=== PATIENT | male | born 1980 | race Two or more races ===

== ENCOUNTER 2020-03-09 00:23 | Inpatient (IN) | payer OTHER ==
[~2020-03-09] VITALS: Ht 172.7 cm; Wt 67.6 kg
[2020-03-09 04:00] VITALS: BP 104/64
[2020-03-09] MEDS ORDERED: HYDROcodone/Acetamin 5/325 tab ORAL PRN (05:45)
[2020-03-09 08:00] VITALS: BP 105/68
[2020-03-09] MEDS: Bacitracin Oint 15gm Tube TOPIC SCH ×2 (08:26→19:10)
[2020-03-09] MEDS: Ampicillin/Sulbactam Sod 3 GM in NS 110 ML IVPB SCH ×3 (08:26→20:20)
[2020-03-09 11:48] LABS: BASOPHILS % (AUTO) 0.7 % (0.0-2.0); EOSINOPHILS % (AUTO) 0.9 % (0.0-3.0); HEMATOCRIT 34.9 % (42.0-52.0); HEMOGLOBIN 12.4 G/DL (14.2-18.0); LYMPHOCYTES % (AUTO) 22.9 % (20.0-45.0); MEAN CORPUSCULAR VOLUME 87 FL (80-99); NEUTROPHILS % (AUTO) 62.5 % (45.0-75.0); PLATELET COUNT 182 K/UL (150-450); RED CELL DISTRIBUTION WIDTH 10.2 % (11.6-14.8); WHITE BLOOD COUNT 5.5 K/UL (4.8-10.8)
[2020-03-09 11:52] VITALS: BP 107/62
[2020-03-09 12:08] LABS: ALANINE AMINOTRANSFERASE 41 U/L (12-78); ALBUMIN 3.7 G/DL (3.4-5.0); ALBUMIN/GLOBULIN RATIO 1.2 (1.0-2.7); ALKALINE PHOSPHATASE 63 U/L (46-116); ANION GAP 8 mmol/L (5-15); ASPARTATE AMINO TRANSFERASE 19 U/L (15-37); BILIRUBIN,TOTAL 1.3 MG/DL (0.2-1.0); BLOOD UREA NITROGEN 16 mg/dL (7-18); CALCIUM 8.9 MG/DL (8.5-10.1); CARBON DIOXIDE 29 MMOL/L (21-32); CHLORIDE 105 MMOL/L (98-107); PHOSPHORUS 3.7 MG/DL (2.5-4.9); POTASSIUM 3.7 MMOL/L (3.5-5.1); SODIUM 142 MMOL/L (136-145)
[2020-03-09 12:09] LABS: BILIRUBIN,DIRECT 0.2 MG/DL (0.0-0.3)
--- NOTE | 2020-03-09 14:27 | History & Physical ---
History and Physical History & Physicial Dictated for Int Mwed-Dr Miller no. [id number]. Eleazar Forte MD March 09, 2020 14:27
[2020-03-09] MEDS ORDERED: Tubing IV Secondary IV ONE (14:56)
[2020-03-09] MEDS ORDERED: NS 500ML ONE (14:56)
[2020-03-09 16:00] VITALS: BP 113/66
[2020-03-09 23:26] VITALS: BP 93/67
--- NOTE | 2020-03-09 23:29 | History and Physical Report ---
DATE OF ADMISSION: 03/09/2020 CHIEF COMPLAINT: The patient is a 39-year-old male presents with complaint of left leg redness, began on 03/06/2020. HISTORY OF PRESENT ILLNESS: The patient suffered a cat bite of the left calf. Cat belongs to his roommate. The patient states he began experienced pain and swelling of the left calf on 03/07/2020. The patient presented to [facility] emergency room. The patient was given 1 dose of Unasyn IV and oral Augmentin. The patient was discharged home. The patient states his left calf continues to swell. The redness spread beyond the ink alana, which was drawn in the emergency room the day previously. The patient states he had fever up to 100.0 degrees Fahrenheit. The patient went to urgent care. The patient was directed to [facility] emergency room again. The patient is transferred to [facility] for insurance purposes. The patient is admitted for cellulitis of the left lower extremity. REVIEW OF SYSTEMS: CONSTITUTIONAL: The patient denies weight loss or weight gain. The patient complains of low-grade fever as above. HEENT: The patient denies ear or throat pain. The patient denies headache. CARDIOVASCULAR: The patient denies palpitations or chest pain. CHEST: The patient denies wheezes or shortness of breath. ABDOMEN: The patient denies nausea, vomiting, diarrhea, or constipation. GENITOURINARY: The patient denies dysuria or increased frequency of urination. NEUROMUSCULAR: The patient complains of redness of the left calf as above. The patient denies weakness or seizures. PAST MEDICAL HISTORY: Significant for prediabetes. PAST SURGICAL HISTORY: Significant for right knee meniscus tear. CURRENT MEDICATIONS: The patient denies. ALLERGIES: No known drug allergies. 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 The patient denies tobacco or alcohol use. PHYSICAL EXAMINATION: VITAL SIGNS: Temperature 98.6, respirations 15, pulse 90, and blood pressure 126/78. GENERAL: The patient is a well-developed and well-nourished male, in no apparent distress. HEENT: Eyes, pupils are equal and responsive to light and accommodation. Extraocular movements are intact. NECK: Supple without lymphadenopathy. CHEST: Lungs are clear to auscultation bilaterally without wheezes or rales. CARDIOVASCULAR: Regular rate. S1 and S2 are normal without murmurs, rubs, or gallops. ABDOMEN: Soft, nontender, and nondistended. Positive bowel sounds. No evidence of hepatosplenomegaly. Currently, no rebound or guarding noted. EXTREMITIES: Presence of erythema on the left medial calf. There is no purulent discharge from the cat bite. Otherwise, without clubbing, cyanosis, or edema. RECTAL/GENITAL: Not performed. NEUROLOGIC: Cranial nerves II through XII are grossly intact without focal deficits. Motor strength is 5/5 bilaterally. Deep tendon reflexes are 2+ plantar. LABORATORY STUDIES: WBC 8.5, hemoglobin 13.3, hematocrit 38.2, and platelets ___. BUN 14, creatinine 1.14, glucose 95, sodium 142, potassium 3.7, chloride 105, and CO2 29. ASSESSMENT: This is a 39-year-old white male: 1. Cellulitis of the left lower extremity. 2. Cat bite. 3. Prediabetes. TREATMENT: 1. Cellulitis/cat bite of the left lower extremity. The patient has been started empirically on intravenous Unasyn. The patient will be transitioned to Augmentin when erythema resolved. 2. Prediabetes, current blood sugar is 101. A regular insulin sliding scale will be instituted if the patient's blood sugars are greater than 130. Eleazar Forte M.D. DR: Nimisha JOB#: [id number] CC:
[2020-03-10] MEDS: Ampicillin/Sulbactam Sod 3 GM in NS 110 ML IVPB SCH ×4 (01:57→19:51)
[2020-03-10 04:00] VITALS: BP 101/64
[2020-03-10 07:05] LABS: BASOPHILS % (AUTO) 1.2 % (0.0-2.0); EOSINOPHILS % (AUTO) 2.3 % (0.0-3.0); HEMATOCRIT 35.4 % (42.0-52.0); HEMOGLOBIN 12.9 G/DL (14.2-18.0); LYMPHOCYTES % (AUTO) 31.5 % (20.0-45.0); MEAN CORPUSCULAR VOLUME 87 FL (80-99); MONOCYTES % (AUTO) 17.9 % (1.0-10.0); NEUTROPHILS % (AUTO) 47.1 % (45.0-75.0); PLATELET COUNT 197 K/UL (150-450); RED BLOOD COUNT 4.07 M/UL (4.70-6.10); RED CELL DISTRIBUTION WIDTH 10.1 % (11.6-14.8); WHITE BLOOD COUNT 4.6 K/UL (4.8-10.8)
[2020-03-10 07:15] LABS: ANION GAP 8 mmol/L (5-15); BLOOD UREA NITROGEN 18 mg/dL (7-18); CALCIUM 8.7 MG/DL (8.5-10.1); CARBON DIOXIDE 30 MMOL/L (21-32); CHLORIDE 108 MMOL/L (98-107); CREATININE 1.1 MG/DL (0.55-1.30); POTASSIUM 4.2 MMOL/L (3.5-5.1); SODIUM 145 MMOL/L (136-145)
[2020-03-10 08:00] VITALS: BP 136/79
[2020-03-10] MEDS: Bacitracin Oint 15gm Tube TOPIC SCH ×2 (08:59→17:26)
--- NOTE | 2020-03-10 10:40 | Diagnostic Imaging Report ---
Indication: Left leg edema and pain, status post cat bite left medial calf Technique: Grayscale and duplex images of the left lower extremity veins Comparison: None Findings: On the left, grayscale and duplex images demonstrate no evidence of intraluminal thrombus. Normal phasic Doppler waveforms, demonstrating normal augmentation response and no evidence of valvular insufficiency. Greater saphenous vein(s) and tibial veins are patent. Normal compressibility. Impression: Negative for evidence of lower extremity deep venous thrombosis on the left
[2020-03-10 12:00] VITALS: BP 105/68
--- NOTE | 2020-03-10 13:03 | Internal Med Progress Note ---
Subjective Date of Service: March 10, 2020 Physician Name Eleazar Forte Attending Physician Curt Miller MD Current Medications Medications (Trade) Dose Ordered Sig/Dillon Route PRN Reason Start Time Stop Time Status Last Admin Dose Admin Acetaminophen (Tylenol) 650 mg Q6H PRN ORAL Mild pain 1-3 & fever 03/09/20 05:45 04/08/20 05:44 Acetaminophen/ Hydrocodone Bitart ([place] 5/325) 1 tab Q6H PRN ORAL Severe Pain (Pain Scale 7-10) 03/09/20 05:45 03/16/20 05:44 Ampicillin Sodium/ Sulbactam Sodium 3 gm/Sodium Chloride 110 ml @ 220 mls/hr Q6H IVPB 03/09/20 08:00 03/16/20 07:59 03/10/20 08:59 Bacitracin (Bacitracin 15gm tube) 1 applic BID TOPIC 03/09/20 09:00 06/07/20 08:59 03/10/20 08:59 Ondansetron HCl (Zofran) 4 mg Q4H PRN IVP Nausea & Vomiting 03/09/20 05:45 04/08/20 05:44 Allergies: Coded Allergies: No Known Allergies (Unverified , 03/09/20) ROS Limited/Unobtainable: No Constitutional: Reports: no symptoms HEENT: Reports: no symptoms Cardiovascular: Reports: no symptoms Respiratory: Reports: no symptoms Gastrointestinal/Abdominal: Reports: no symptoms Genitourinary: Reports: no symptoms Neurologic/Psychiatric: Reports: no symptoms Subjective 39 YO M with history of cat bite to left calf admitted with cellulitis left leg. Cover for Int Med-Dr Miller Objective Last Vital Signs Date Time Temp Pulse Resp B/P (MAP) Pulse Ox O2 Delivery O2 Flow Rate FiO2 03/10/20 09:00 Room Air 03/10/20 08:00 98.1 74 18 136/79 (98) 99 Laboratory Tests Test 03/10/20 05:10 White Blood Count 4.6 K/UL (4.8-10.8) L Red Blood Count 4.07 M/UL (4.70-6.10) L Hemoglobin 12.9 G/DL (14.2-18.0) L Hematocrit 35.4 % (42.0-52.0) L Mean Corpuscular Volume 87 FL (80-99) Mean Corpuscular Hemoglobin 31.7 PG (27.0-31.0) H Mean Corpuscular Hemoglobin Concent 36.5 G/DL (32.0-36.0) H Red Cell Distribution Width 10.1 % (11.6-14.8) L Platelet Count 197 K/UL (150-450) Mean Platelet Volume 5.7 FL (6.5-10.1) L Neutrophils (%) (Auto) 47.1 % (45.0-75.0) Lymphocytes (%) (Auto) 31.5 % (20.0-45.0) Monocytes (%) (Auto) 17.9 % (1.0-10.0) H Eosinophils (%) (Auto) 2.3 % (0.0-3.0) Basophils (%) (Auto) 1.2 % (0.0-2.0) Sodium Level 145 MMOL/L (136-145) Potassium Level 4.2 MMOL/L (3.5-5.1) Chloride Level 108 MMOL/L (98-107) H Carbon Dioxide Level 30 MMOL/L (21-32) Anion Gap 8 mmol/L (5-15) Blood Urea Nitrogen 18 mg/dL (7-18) Creatinine 1.1 MG/DL (0.55-1.30) Estimat Glomerular Filtration Rate > 60 mL/min (>60) Glucose Level 106 MG/DL (74-106) Calcium Level 8.7 MG/DL (8.5-10.1) Intake and Output 03/09/20 03/10/20 19:00 07:00 Intake Total 900 ml 590 ml Balance 900 ml 590 ml Intake Oral 900 ml 480 ml IV Total 110 ml # Voids 3 5 # Bowel Movements 3 Objective PHYSICAL EXAMINATION: GENERAL: The patient is a well-developed and well-nourished male, in no apparent distress. HEENT: Eyes, pupils are equal and responsive to light and accommodation. Extraocular movements are intact. NECK: Supple without lymphadenopathy. CHEST: Lungs are clear to auscultation bilaterally without wheezes or rales. CARDIOVASCULAR: Regular rate. S1 and S2 are normal without murmurs, rubs, or gallops. ABDOMEN: Soft, nontender, and nondistended. Positive bowel sounds. No evidence of hepatosplenomegaly. Currently, no rebound or guarding noted. EXTREMITIES: Presence of erythema on the left medial calf. There is no purulent discharge from the cat bite. Otherwise, without clubbing, cyanosis, or edema. RECTAL/GENITAL: Not performed. NEUROLOGIC: Cranial nerves II through XII are grossly intact without focal deficits. Motor strength is 5/5 bilaterally. Deep tendon reflexes are 2+ plantar. Assessment/Plan Assessment/Plan ASSESSMENT: This is a 39-year-old white male: 1. Cellulitis of the left lower extremity. 2. Cat bite. 3. Prediabetes. TREATMENT: 1. Cellulitis/cat bite of the left lower extremity. The patient has been started empirically on intravenous Unasyn. Venous duplex doppler=neg for DVT. Blood cultures neg. The patient will be transitioned to Augmentin when erythema resolved. 2. Prediabetes, current blood sugar is 101. A regular insulin sliding scale will be instituted if the patient's blood sugars are greater than 130. Eleazar Forte MD March 10, 2020 13:03
[2020-03-10 16:00] VITALS: BP 106/68
[2020-03-10 20:00] VITALS: BP 117/70
[2020-03-11 00:01] VITALS: BP 96/56
[2020-03-11] MEDS: Ampicillin/Sulbactam Sod 3 GM in NS 110 ML IVPB SCH ×3 (01:43→15:21)
[2020-03-11 05:41] LABS: BASOPHILS % (AUTO) 1.3 % (0.0-2.0); EOSINOPHILS % (AUTO) 2.7 % (0.0-3.0); HEMATOCRIT 36.2 % (42.0-52.0); LYMPHOCYTES % (AUTO) 39.2 % (20.0-45.0); MEAN CORPUSCULAR VOLUME 86 FL (80-99); MONOCYTES % (AUTO) 13.3 % (1.0-10.0); NEUTROPHILS % (AUTO) 43.5 % (45.0-75.0); PLATELET COUNT 200 K/UL (150-450); RED BLOOD COUNT 4.19 M/UL (4.70-6.10); RED CELL DISTRIBUTION WIDTH 9.8 % (11.6-14.8); WHITE BLOOD COUNT 4.8 K/UL (4.8-10.8)
[2020-03-11 05:56] LABS: ANION GAP 5 mmol/L (5-15); BLOOD UREA NITROGEN 20 mg/dL (7-18); CALCIUM 8.7 MG/DL (8.5-10.1); CARBON DIOXIDE 30 MMOL/L (21-32); CHLORIDE 107 MMOL/L (98-107); POTASSIUM 4.2 MMOL/L (3.5-5.1); SODIUM 142 MMOL/L (136-145)
[2020-03-11 08:00] VITALS: BP 118/75
[2020-03-11] MEDS: Bacitracin Oint 15gm Tube TOPIC SCH ×2 (08:41→18:23)
[2020-03-11 11:50] VITALS: BP 106/70
--- NOTE | 2020-03-11 13:35 | Consultation ---
History of Present Illness General Date patient seen: March 11, 2020 Reason for Consultation: inpatient management Present Illness HPI 39 year old with hx of prediabetes presented to ER of [facility] with redness and swelling to his left calf after a cat bite. Pt received one dose of IV Unasy and was given Augmentin and discharged. The following day the redness and swelling came back and he went to ER again. He is transferred to [facility] for further treatment. Allergies: Coded Allergies: No Known Allergies (Unverified , 03/09/20) Patient History Healthcare decision maker Resuscitation status Advanced Directive on File Past Medical/Surgical History Past Medical/Surgical History: (1) History of prediabetes Review of Systems Constitutional: Reports: fever All Other Systems: negative except mentioned in HPI Physical Exam General Appearance: WD/WN Lines, tubes and drains: peripheral HEENT: normocephalic, anicteric Neck: non-tender, supple Respiratory/Chest: chest wall non-tender, normal breath sounds Cardiovascular/Chest: normal peripheral pulses, normal rate Abdomen: non tender, soft Genitourinary/Rectal: normal genital exam, normal rectal exam Extremities: normal range of motion Skin Exam: other - redness at left posterior calf area Last 24 Hour Vital Signs Date Time Temp Pulse Resp B/P (MAP) Pulse Ox O2 Delivery O2 Flow Rate FiO2 03/11/20 11:50 97.7 63 19 106/70 (82) 99 03/11/20 09:00 Room Air 03/11/20 08:00 97.6 72 20 118/75 (89) 96 03/11/20 00:01 97.5 64 18 96/56 (69) 100 03/10/20 21:00 Room Air 03/10/20 20:00 97.8 56 18 117/70 (86) 100 03/10/20 16:00 98.0 63 18 106/68 (81) 96 Intake and Output 03/10/20 03/11/20 19:00 07:00 Intake Total 600 ml 600 ml Balance 600 ml 600 ml Intake Oral 600 ml 600 ml # Voids 3 4 Laboratory Tests Test 03/11/20 04:40 White Blood Count 4.8 K/UL (4.8-10.8) Red Blood Count 4.19 M/UL (4.70-6.10) L Hemoglobin 13.0 G/DL (14.2-18.0) L Hematocrit 36.2 % (42.0-52.0) L Mean Corpuscular Volume 86 FL (80-99) Mean Corpuscular Hemoglobin 30.9 PG (27.0-31.0) Mean Corpuscular Hemoglobin Concent 35.8 G/DL (32.0-36.0) Red Cell Distribution Width 9.8 % (11.6-14.8) L Platelet Count 200 K/UL (150-450) Mean Platelet Volume 5.5 FL (6.5-10.1) L Neutrophils (%) (Auto) 43.5 % (45.0-75.0) L Lymphocytes (%) (Auto) 39.2 % (20.0-45.0) Monocytes (%) (Auto) 13.3 % (1.0-10.0) H Eosinophils (%) (Auto) 2.7 % (0.0-3.0) Basophils (%) (Auto) 1.3 % (0.0-2.0) Sodium Level 142 MMOL/L (136-145) Potassium Level 4.2 MMOL/L (3.5-5.1) Chloride Level 107 MMOL/L (98-107) Carbon Dioxide Level 30 MMOL/L (21-32) Anion Gap 5 mmol/L (5-15) Blood Urea Nitrogen 20 mg/dL (7-18) H Creatinine 1.0 MG/DL (0.55-1.30) Estimat Glomerular Filtration Rate > 60 mL/min (>60) Glucose Level 101 MG/DL (74-106) Calcium Level 8.7 MG/DL (8.5-10.1) Height (Feet): 5 Height (Inches): 8.00 Weight (Pounds): 149 Medications Current Medications Medications (Trade) Dose Ordered Sig/Dillon Route PRN Reason Start Time Stop Time Status Last Admin Dose Admin Acetaminophen (Tylenol) 650 mg Q6H PRN ORAL Mild pain 1-3 & fever 03/09/20 05:45 04/08/20 05:44 Acetaminophen/ Hydrocodone Bitart ([place] 5/325) 1 tab Q6H PRN ORAL Severe Pain (Pain Scale 7-10) 03/09/20 05:45 03/16/20 05:44 Ampicillin Sodium/ Sulbactam Sodium 3 gm/Sodium Chloride 110 ml @ 220 mls/hr Q6H IVPB 03/09/20 08:00 03/16/20 07:59 03/11/20 08:41 Bacitracin (Bacitracin 15gm tube) 1 applic BID TOPIC 03/09/20 09:00 06/07/20 08:59 03/11/20 08:41 Ondansetron HCl (Zofran) 4 mg Q4H PRN IVP Nausea & Vomiting 03/09/20 05:45 04/08/20 05:44 Assessment/Plan Problem List: (1) Left leg cellulitis ICD Codes: L03.116 - Cellulitis of left lower limb SNOMED: 996347025 (2) Cat bite ICD Codes: W55.01XA - Bitten by cat, initial encounter SNOMED: 811703214, 321694165 (3) History of prediabetes ICD Codes: Z87.898 - Personal history of other specified conditions SNOMED: 4496713, 867007438 Assessment/Plan: improving on IV abx symptomatic treatment check cultures ID called about switching to oral medication. Wendy Navarro MD March 11, 2020 13:35
--- NOTE | 2020-03-11 14:08 | Consultation ---
History of Present Illness General Date patient seen: March 11, 2020 Reason for Consultation: inpatient management Present Illness HPI 39 y/o M with hx of pre-diabetes, R knee meniscus tear repair presented to ED on 03/09 with worsening L calf redness and swelling after a cat bite. He noticed swelling and pain on 03/07/20. He was seen on [place] ED on 03/08 and was given one dose of IV Unasyn and discharged on augmentin. Patient continue to have redness and swelling and presented to ED [facility]. He endorsed having fever up to 100. 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 The patient denies tobacco or alcohol use. Fhx: non contributory Review of Systems All Other Systems: negative except mentioned in HPI Physical Exam Physical Exam Narrative GENERAL: The patient is a well-developed and well-nourished male, in no apparent distress. HEENT: Eyes, pupils are equal and responsive to light and accommodation. Extraocular movements are intact. NECK: Supple without lymphadenopathy. CHEST: Lungs are clear to auscultation bilaterally without wheezes or rales. CARDIOVASCULAR: Regular rate. S1 and S2 are normal without murmurs, rubs, or gallops. ABDOMEN: Soft, nontender, and nondistended. Positive bowel sounds. No evidence of hepatosplenomegaly. Currently, no rebound or guarding noted. EXTREMITIES: Presence of erythema on the left medial calf. There is no purulent discharge from the cat bite. Otherwise, without clubbing, cyanosis, or edema. Last 24 Hour Vital Signs Date Time Temp Pulse Resp B/P (MAP) Pulse Ox O2 Delivery O2 Flow Rate FiO2 03/11/20 11:50 97.7 63 19 106/70 (82) 99 03/11/20 09:00 Room Air 03/11/20 08:00 97.6 72 20 118/75 (89) 96 03/11/20 00:01 97.5 64 18 96/56 (69) 100 03/10/20 21:00 Room Air 03/10/20 20:00 97.8 56 18 117/70 (86) 100 03/10/20 16:00 98.0 63 18 106/68 (81) 96 Intake and Output 03/10/20 03/11/20 19:00 07:00 Intake Total 600 ml 600 ml Balance 600 ml 600 ml Intake Oral 600 ml 600 ml # Voids 3 4 Laboratory Tests Test 03/11/20 04:40 White Blood Count 4.8 K/UL (4.8-10.8) Red Blood Count 4.19 M/UL (4.70-6.10) L Hemoglobin 13.0 G/DL (14.2-18.0) L Hematocrit 36.2 % (42.0-52.0) L Mean Corpuscular Volume 86 FL (80-99) Mean Corpuscular Hemoglobin 30.9 PG (27.0-31.0) Mean Corpuscular Hemoglobin Concent 35.8 G/DL (32.0-36.0) Red Cell Distribution Width 9.8 % (11.6-14.8) L Platelet Count 200 K/UL (150-450) Mean Platelet Volume 5.5 FL (6.5-10.1) L Neutrophils (%) (Auto) 43.5 % (45.0-75.0) L Lymphocytes (%) (Auto) 39.2 % (20.0-45.0) Monocytes (%) (Auto) 13.3 % (1.0-10.0) H Eosinophils (%) (Auto) 2.7 % (0.0-3.0) Basophils (%) (Auto) 1.3 % (0.0-2.0) Sodium Level 142 MMOL/L (136-145) Potassium Level 4.2 MMOL/L (3.5-5.1) Chloride Level 107 MMOL/L (98-107) Carbon Dioxide Level 30 MMOL/L (21-32) Anion Gap 5 mmol/L (5-15) Blood Urea Nitrogen 20 mg/dL (7-18) H Creatinine 1.0 MG/DL (0.55-1.30) Estimat Glomerular Filtration Rate > 60 mL/min (>60) Glucose Level 101 MG/DL (74-106) Calcium Level 8.7 MG/DL (8.5-10.1) Height (Feet): 5 Height (Inches): 8.00 Weight (Pounds): 149 Medications Current Medications Medications (Trade) Dose Ordered Sig/Dillon Route PRN Reason Start Time Stop Time Status Last Admin Dose Admin Acetaminophen (Tylenol) 650 mg Q6H PRN ORAL Mild pain 1-3 & fever 03/09/20 05:45 04/08/20 05:44 Acetaminophen/ Hydrocodone Bitart ([place] 5/325) 1 tab Q6H PRN ORAL Severe Pain (Pain Scale 7-10) 03/09/20 05:45 03/16/20 05:44 Ampicillin Sodium/ Sulbactam Sodium 3 gm/Sodium Chloride 110 ml @ 220 mls/hr Q6H IVPB 03/09/20 08:00 03/16/20 07:59 03/11/20 08:41 Bacitracin (Bacitracin 15gm tube) 1 applic BID TOPIC 03/09/20 09:00 06/07/20 08:59 03/11/20 08:41 Ondansetron HCl (Zofran) 4 mg Q4H PRN IVP Nausea & Vomiting 03/09/20 05:45 04/08/20 05:44 Assessment/Plan Assessment/Plan: Abx: Unasyn 03/09- Assessment: L calf cellulitis after eder bite; resolving -BCx NTD -V. 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 Will continue to follow along with you. Discussed with RN, Alla Galvan M.D. March 11, 2020 14:08
--- NOTE | 2020-03-11 15:07 | Internal Med Progress Note ---
Subjective Date of Service: March 11, 2020 Physician Name Eleazar Forte Attending Physician Curt Miller MD Current Medications Medications (Trade) Dose Ordered Sig/Dillon Route PRN Reason Start Time Stop Time Status Last Admin Dose Admin Acetaminophen (Tylenol) 650 mg Q6H PRN ORAL Mild pain 1-3 & fever 03/09/20 05:45 04/08/20 05:44 Acetaminophen/ Hydrocodone Bitart ([place] 5/325) 1 tab Q6H PRN ORAL Severe Pain (Pain Scale 7-10) 03/09/20 05:45 03/16/20 05:44 Ampicillin Sodium/ Sulbactam Sodium 3 gm/Sodium Chloride 110 ml @ 220 mls/hr Q6H IVPB 03/09/20 08:00 03/16/20 07:59 03/11/20 08:41 Bacitracin (Bacitracin 15gm tube) 1 applic BID TOPIC 03/09/20 09:00 06/07/20 08:59 03/11/20 08:41 Ondansetron HCl (Zofran) 4 mg Q4H PRN IVP Nausea & Vomiting 03/09/20 05:45 04/08/20 05:44 Allergies: Coded Allergies: No Known Allergies (Unverified , 03/09/20) ROS Limited/Unobtainable: No Constitutional: Reports: no symptoms HEENT: Reports: no symptoms Cardiovascular: Reports: no symptoms Respiratory: Reports: no symptoms Gastrointestinal/Abdominal: Reports: no symptoms Genitourinary: Reports: no symptoms Neurologic/Psychiatric: Reports: no symptoms Subjective 39 YO M with history of cat bite to left calf admitted with cellulitis left leg. Cover for Int Med-Dr Miller Objective Last Vital Signs Date Time Temp Pulse Resp B/P (MAP) Pulse Ox O2 Delivery O2 Flow Rate FiO2 03/11/20 11:50 97.7 63 19 106/70 (82) 99 03/11/20 09:00 Room Air Laboratory Tests Test 03/11/20 04:40 White Blood Count 4.8 K/UL (4.8-10.8) Red Blood Count 4.19 M/UL (4.70-6.10) L Hemoglobin 13.0 G/DL (14.2-18.0) L Hematocrit 36.2 % (42.0-52.0) L Mean Corpuscular Volume 86 FL (80-99) Mean Corpuscular Hemoglobin 30.9 PG (27.0-31.0) Mean Corpuscular Hemoglobin Concent 35.8 G/DL (32.0-36.0) Red Cell Distribution Width 9.8 % (11.6-14.8) L Platelet Count 200 K/UL (150-450) Mean Platelet Volume 5.5 FL (6.5-10.1) L Neutrophils (%) (Auto) 43.5 % (45.0-75.0) L Lymphocytes (%) (Auto) 39.2 % (20.0-45.0) Monocytes (%) (Auto) 13.3 % (1.0-10.0) H Eosinophils (%) (Auto) 2.7 % (0.0-3.0) Basophils (%) (Auto) 1.3 % (0.0-2.0) Sodium Level 142 MMOL/L (136-145) Potassium Level 4.2 MMOL/L (3.5-5.1) Chloride Level 107 MMOL/L (98-107) Carbon Dioxide Level 30 MMOL/L (21-32) Anion Gap 5 mmol/L (5-15) Blood Urea Nitrogen 20 mg/dL (7-18) H Creatinine 1.0 MG/DL (0.55-1.30) Estimat Glomerular Filtration Rate > 60 mL/min (>60) Glucose Level 101 MG/DL (74-106) Calcium Level 8.7 MG/DL (8.5-10.1) Microbiology Date/Time Source Procedure Growth Status 03/09/20 06:40 Blood Blood Culture - Preliminary NO GROWTH AFTER 24 HOURS Resulted 03/09/20 06:35 Blood Blood Culture - Preliminary NO GROWTH AFTER 24 HOURS Resulted Intake and Output 03/10/20 03/11/20 19:00 07:00 Intake Total 600 ml 600 ml Balance 600 ml 600 ml Intake Oral 600 ml 600 ml # Voids 3 4 Objective PHYSICAL EXAMINATION: GENERAL: The patient is a well-developed and well-nourished male, in no apparent distress. HEENT: Eyes, pupils are equal and responsive to light and accommodation. Extraocular movements are intact. NECK: Supple without lymphadenopathy. CHEST: Lungs are clear to auscultation bilaterally without wheezes or rales. CARDIOVASCULAR: Regular rate. S1 and S2 are normal without murmurs, rubs, or gallops. ABDOMEN: Soft, nontender, and nondistended. Positive bowel sounds. No evidence of hepatosplenomegaly. Currently, no rebound or guarding noted. EXTREMITIES: Presence of erythema on the left medial calf. There is no purulent discharge from the cat bite. Otherwise, without clubbing, cyanosis, or edema. RECTAL/GENITAL: Not performed. NEUROLOGIC: Cranial nerves II through XII are grossly intact without focal deficits. Motor strength is 5/5 bilaterally. Deep tendon reflexes are 2+ plantar. Assessment/Plan Assessment/Plan ASSESSMENT: This is a 39-year-old white male: 1. Cellulitis of the left lower extremity. 2. Cat bite. 3. Prediabetes. TREATMENT: 1. Cellulitis/cat bite of the left lower extremity. The patient has been started empirically on intravenous Unasyn. Venous duplex doppler=neg for DVT. Blood cultures neg. 2. Prediabetes, current blood sugar is 101. A regular insulin sliding scale will be instituted if the patient's blood sugars are greater than 130. 3. Discharge home today on Eleazar Ash MD March 11, 2020 15:07
[2020-03-11] MEDS ORDERED: AUGMENTIN 875-1 EAC1 ORAL (15:08)
[2020-03-11] MEDS ORDERED: BACITRACIN TOPIC (15:08)
[2020-03-11 16:00] VITALS: BP 115/68
--- NOTE | 2020-03-13 12:20 | Discharge Summary ---
Discharge Summary Discharge Summary _ DATE OF ADMISSION: 03/09/2020 DATE OF DISCHARGE: 03/11/2020 DISCHARGED BY: Dr. Miller REASON FOR ADMISSION: 39 years old male with past medical history of prediabetes, presented with complaint of left leg redness, started 3 days ago. Patient suffered a cat bite on the left calf from his roommate's cat. He subsequently started to experience pain and swelling of the left calf. Patient initially presented to [facility], where he received empiric antibiotic and was discharged home. However the left calf continued to swell and redness spread beyond the ink marked during the emergency room the day previously. Patient reported fevers. Patient went to urgent care , and was directed to [facility] emergency room again. Patient was subsequently transferred to [facility] for insurance purposes. Patient admitted for cellulitis of left lower extremity secondary to cat bite. CONSULTANTS: transition of care specialist Dr. Navarro ID specialist Dr. Galvan [facility] COURSE: Patient admitted to medical surgical floor. Patient started on empiric antibiotics. Blood cultures were negative. Fevers resolved, no leukocytosis. Venous duplex bilateral lower extremity revealed no evidence of acute DVT. While in the hospital patient was on IV antibiotic, which transitioned to oral upon discharge. Patient will need 7 more days of oral Augmentin as per ID specialist recommendation. No concentrated sweet diet provided. Blood sugar remained stable. Patient clinically improved and was ready for discharge home FINAL DIAGNOSES: Cellulitis of left lower extremity secondary to cat bite Prediabetes Fevers-resolved DISCHARGE MEDICATIONS: See Medication Reconciliation list. DISCHARGE INSTRUCTIONS: Patient was discharged home. Follow-up with a primary care provider in 1 week. I have been assigned to dictate discharge summary for this account. I was not involved in the patient's management. Yanira Narayan NP March 13, 2020 12:20
== END 2020-03-11 19:15 | disposition home or self-care (01) | DRG 603 ==
LOC: 3E 01:37
DX: L03.116 Cellulitis of left lower limb (principal); S81.852A Open bite, left lower leg, initial encounter; W55.01XA Bitten by cat, initial encounter; Y92.009 Unspecified place in unspecified non-institutional (private) residence as the place of occurrence of the external cause; R73.03 Prediabetes
CPT/HCPCS: 36415; 80048; 80053; 82248; 83735; 84100; 85025; 87040; 93971